=== PATIENT | female | born 1990 | race Caucasian/White ===

== ENCOUNTER → 2016-11-04 | Outpatient (CLI) | payer MEDICAID ==
[~2016-11-04] MED LIST: AMOX875 PO; BENZ100 PO
--- NOTE | 2016-11-05 09:52 | EKG ---
Date Performed: 11/04/2016 Time Performed: 14:26:09 PTAGE: 26 years EKG: Sinus rhythm Compared to prior tracing no significant change NORMAL ECG PREVIOUS TRACING : 06/05/2015 12.35 DOCTOR: Alberto Valverde Interpretating Date/Time 11/05/2016 09:49:06
== END ==
LOC: HCAV 14:02
PROVIDERS: ATTEND Psychiatry & Neurology Child & Adolescent Psychiatry
DX: F90.0 Attention-deficit hyperactivity disorder, predominantly inattentive type (principal); F33.0 Major depressive disorder, recurrent, mild; F43.12 Post-traumatic stress disorder, chronic
CPT/HCPCS: 93005